=== PATIENT | male | born 1990 | race Caucasian/White ===

== ENCOUNTER 2017-07-21 09:50 | Emergency (ER) | payer SELFPAY ==
[~2017-07-21] VITALS: Ht 195.6 cm; Wt 105.0 kg
[~2017-07-21 09:50] MED LIST: LORTAB 5 OR; MEDDOSEPAK OR; TRIAMCINOLON0.11 EX; ULTRAM50 MG OR
[2017-07-21 10:45] LABS: ALBUMIN 4.7 g/dL (3.2-5.0); ALKALINE PHOSPHATASE 65 u/l (38-126); ANION GAP 16 (6-22 (CALC)); BILIRUBIN, TOTAL 0.6 mg/dL (0.0-1.4); BUN 17 mg/dL (9-20); BUN/CREATININE RATIO 19 (12-20 (CALC)); CARBON DIOXIDE 25 mmol/l (22-30); CHLORIDE 105 mmol/l (95-108); CREATININE 0.9 mg/dL (0.7-1.3); GFR > 60 ML/MIN (>=60 (CALC)); GFR FOR AFR.AMER. > 60 ML/MIN (>=60 (CALC)); GLUCOSE 120 mg/dL (75-110); POTASSIUM 4.7 mmol/l (3.5-5.1); SGOT/AST 27 u/l (17-59); SGPT/ALT 27 u/l (21-72); SODIUM 142 mmol/l (137-146); TOTAL PROTEIN 7.3 g/dL (6.3-8.2)
[2017-07-21 10:59] VITALS: BP 123/74
== END 2017-07-21 11:00 | DRG 125 ==
LOC: ED 09:50
PROVIDERS: Emergency Medicine
DX: S05.22XA Ocular laceration and rupture with prolapse or loss of intraocular tissue, left eye, initial encounter (principal); S05.12XA Contusion of eyeball and orbital tissues, left eye, initial encounter; F17.210 Nicotine dependence, cigarettes, uncomplicated; W22.8XXA Striking against or struck by other objects, initial encounter; Y93.H3 Activity, building and construction; Y92.009 Unspecified place in unspecified non-institutional (private) residence as the place of occurrence of the external cause

== ENCOUNTER 2017-08-11 08:50 | Emergency (ER) | payer OTHER ==
[~2017-08-11] VITALS: Ht 195.6 cm; Wt 105.0 kg
[2017-08-11] MEDS ORDERED: OXYCOD/APAP1 TA4 PO (10:11)
[2017-08-11 10:25] VITALS: BP 129/74
== END 2017-08-11 10:25 | disposition home or self-care (01) | DRG 125 ==
LOC: ED 08:50
DX: H57.12 Ocular pain, left eye (principal); Z98.890 Other specified postprocedural states